=== PATIENT | male | born 1970 | race Caucasian/White ===

== ENCOUNTER 2021-12-04 18:03 | Emergency (ER) | payer MEDICARE ==
[2021-12-04 18:49] LABS: ESTIMATED GFR 106 mL/min (>60)
[2021-12-04] MEDS ORDERED: Nicotine 14 MG/24 Hr Patch TRDERM ONE (19:02)
[2021-12-04] MEDS ORDERED: Acetaminophen 500 MG Tab PO ONE (19:02)
[2021-12-04] MEDS ORDERED: Acetaminophen 500 MG Tab ONE (19:04)
[2021-12-04] MEDS ORDERED: Nicotine Polacrilex 2 MG Gum CHEW PRN (19:07)
[2021-12-04] MEDS ORDERED: Nicotine Polacrilex 2 MG Gum ONE (19:07)
== END 2021-12-04 20:04 | disposition home or self-care (01) ==
LOC: FB.ED 18:03
DX: U07.1 COVID-19 (principal)
CPT/HCPCS: 36415; 80053; 85025; 99283; A9270; U0002